=== PATIENT | female | born 1985 | race Caucasian/White ===

== ENCOUNTER 2020-06-25 11:04 | Emergency (ER) | payer OTHER ==
[~2020-06-25 11:04] MED LIST: BASAGLAR K100 UNIT/1 SQ; KEFLEX CAP 500500 MG PO; LEVEMIR100 UNIT/1 SQ; NOVOLOG 10100 UNITS1 INJ
[2020-06-25 12:10] LABS: BUN/CREATININE RATIO 24 (0-10); HEMOGLOBIN 12.5 gm/dl (12.3-15.3); RED BLOOD COUNT 4.59 M/UL (4.00-5.10); WHITE BLOOD COUNT 6.4 K/UL (4.5-11.0)
== END 2020-06-25 16:00 | disposition home or self-care (01) ==
LOC: ER1 11:04
PROVIDERS: Emergency Medicine
DX: E11.649 Type 2 diabetes mellitus with hypoglycemia without coma (principal); Z79.4 Long term (current) use of insulin; Z90.89 Acquired absence of other organs
CPT/HCPCS: 80053; 80307; 81001; 82550; 82553; 83874; 84484; 85025; 93005; 96374; 99285

== ENCOUNTER → 2021-01-21 | Outpatient (CLI) | payer OTHER | LOC: US 01-20 14:00 → MAMO 13:00 | DX: N63.10 Unspecified lump in the right breast, unspecified quadrant (principal); N63.20 Unspecified lump in the left breast, unspecified quadrant; Z80.3 Family history of malignant neoplasm of breast | CPT/HCPCS: 76641-LT; 76641-RT; 77066; G0279 ==

== ENCOUNTER 2021-09-03 10:14 | Emergency (ER) | payer OTHER | END 2021-09-03 10:21 | disposition left against medical advice (07) | LOC: ER1 10:14 | DX: Z53.21 Procedure and treatment not carried out due to patient leaving prior to being seen by health care provider (principal) | CPT/HCPCS: J1885 ==